=== PATIENT | male | born 1975 | race Two or more races ===

== ENCOUNTER 2024-07-28 17:27 | Emergency (ER) | payer OTHER, SELFPAY ==
[2024-07-28 17:34] VITALS: BP 139/81; PULSE 84; TEMP 38.1; O2SAT 97
--- NOTE | 2024-07-28 17:43 | XR_ITS ---
The [address] [address] Patient Name: SADA ROJAS MRN: [id number] date: 1975 Sex: M Assigned Patient Location: ER Current Patient Location: ED.MAIN Accession/Order Number: [id number] Exam Date: 07/28/2024 18:38 Report Date: 07/28/2024 18:39 At the request of: LC HANKINS Procedure: XR chest 2V Chest 2 views CLINICAL HISTORY: Cough fever congestion for the past week. COMPARISON: None FINDINGS: Heart normal in size. Lungs are clear. No free air. XR/XR chest 2V IMPRESSION: NO ACUTE CARDIOPULMONARY ABNORMALITY. Impression dictated by: Ronnie Sauer Jr., D.ODano07/28/2024 6:39 PM Dictation Location: [facility] Electronically authenticated by: [id number] Y Date: 07/28/2024 18:39
--- NOTE | 2024-07-28 17:44 | ED.URI1 ---
HPI - URI/Sore Throat General Chief Complaint: Upper Respiratory Infection Stated Complaint: FLU Symptoms Time Seen by Provider: 07/28/24 17:29 Source: patient History of Present Illness HPI Narrative: Patient is a 49-year-old male presents to the ER with a work colleague for evaluation of cough and fever. Patient had symptoms started last Monday he is here with a group of individuals from [facility] and they are living together. They arrived on 16 July. Patient states symptoms started mid last week on Monday and where he is living many people have influenza A. His colleagues however are getting better but the patient still has symptoms and does not appear to be improving. There is been no chest pain, vomiting or diarrhea. He has some discomfort with his cough and minimally productive sputum. His colleague is translating for him at the bedside. He arrives mildly febrile states he took paracetamol 3 hours prior to arrival and TheraFlu a few hours ago. MD elicited complaint: Reports fever, cough and nasal congestion Onset (ago): day(s) (5) Consistency: Reports constant Able to tolerate fluids by mouth: Yes Exacerbating factors: Reports nothing Relieving factors: Reports nothing Context: Reports sick contacts, recent travel and other(s) with similar symptoms Associated symptoms: Reports fever, myalgias and cough; Denies stiff neck, nausea or vomiting Treatments prior to arrival: Reports acetaminophen and cold medicine Related Data Previous Rx's ?Medication ?Instructions ?Recorded azithromycin 250 mg tablet 250 mg PO DAILY 4 days #4 tabs 07/28/24 (Zithromax) benzonatate 200 mg capsule 200 mg PO TID PRN cough #15 caps 07/28/24 Allergies Allergy/AdvReac Type Severity Reaction Status Date / Time No Known Drug Allergies Allergy Verified 07/28/24 17:37 Review of Systems ROS Constitutional Reports: fever; Denies: chills Eyes Denies: change in vision Ears, nose, mouth, and throat Denies: throat pain or neck pain Cardiovascular Denies: chest pain, palpitations, edema or swelling of feet/ankles Respiratory Reports: cough; Denies: shortness of breath Gastrointestinal Denies: abdominal pain, nausea, vomiting or coffee grounds in vomit Genitourinary Denies: painful urination Musculoskeletal Denies: back pain, neck pain, extremity pain or extremity swelling Integumentary/Breast Denies: rash, itching or redness Neurological Denies: headache Psychiatric Denies: anxiety, mood swings or panic attacks Exam Narrative Exam Narrative: Nurses notes and vital signs reviewed and patient is not hypoxic. General: The patient appears well and in no apparent distress. Patient is resting comfortably on cart. Skin: Warm, dry, no pallor noted. No evidence of rash Head: Normocephalic, atraumatic Neck: Supple, trachea mid-line, no tenderness, no lymphadenopathy Eye: Pupils are equal, round and reactive to light, EOMI Ears, Nose, Mouth, and Throat: TM are clear, normal light reflex, oral mucosa is moist, no posterior oropharynx erythema or hypertrophy, uvula is mid-line, positive postnasal drainage. Cardiovascular: Regular Rate and Rhythm Respiratory: Patient is in no distress, no accessory muscle use, lungs are clear to auscultation, no wheezing, rales or rhonchi. Diminished in the bases. Harsh cough noted at the bedside. Chest Wall: no tenderness Back: non-tender, no CVA tenderness Musculoskeletal: normal ROM, no tenderness, no swelling GI: Normal bowel sounds, no tenderness to palpation, no masses appreciated. No rebound, guarding, or rigidity noted. Neurological: A&O x4 Psychiatric: Cooperative Constitutional Vital Signs, click to edit/add: Last Vital Signs Temp 100.5 F H 07/28/24 17:34 Pulse 84 07/28/24 17:34 Resp 16 07/28/24 17:34 BP 139/81 07/28/24 17:34 Pulse Ox 97 07/28/24 17:34 O2 Del Method Room Air 07/28/24 17:34 Course Vital Signs Vital signs: Vital Signs Temperature 100.5 F H 07/28/24 17:34 Pulse Rate 84 07/28/24 17:34 Respiratory Rate 16 07/28/24 17:34 Blood Pressure 139/81 07/28/24 17:34 Pulse Oximetry 97 07/28/24 17:34 Oxygen Delivery Method Room Air 07/28/24 17:34 Temperature 100.5 F H 07/28/24 17:34 Pulse Rate 84 07/28/24 17:34 Respiratory Rate 16 07/28/24 17:34 Blood Pressure 139/81 07/28/24 17:34 Pulse Oximetry 97 07/28/24 17:34 Oxygen Delivery Method Room Air 07/28/24 17:34 MDM - URI/Sore Throat MDM Narrative Medical decision making narrative: Patient here from [facility], we discussed his clinical picture consistent with that of likely influenza however his symptoms have not improved like his coworkers he is without any leg edema or swelling he is not hypoxic chest x-ray concerning for a right lower lobe infiltrate on preliminary view we will treat him with azithromycin patient discharge and questions were answered via enrollment representative formal at the bedside he did have a colleague helping him with translation but we wanted to give the opportunity to ask any questions or concerns. He is given handwritten prescriptions to fill at a pharmacy with instructions and we were able to translate some of his discharge instructions to his ramona language for further understanding patient thankful had no further concerns or questions encouraged to follow-up with family doctor or [facility], he may return to the ER if symptoms worsen or new symptoms develop. The patient is to followup with primary care physician in next 2-3 days or to return to the emergency department should any of the signs or symptoms worsen or new symptoms develop. Patient had questions answered. The patient agrees with the following Diagnosis and Treatment plan and the patient will be discharged home. Discharge Plan Discharge Chief Complaint: Upper Respiratory Infection Clinical Impression: Upper respiratory infection, Pneumonia, Exposure to influenza Patient Disposition: Home, Self-Care Time of Disposition Decision: 18:14 Condition: Good Prescriptions / Home Meds: New benzonatate 200 mg capsule 200 mg PO TID PRN (Reason: cough) Qty: 15 0RF azithromycin [Zithromax] 250 mg tablet 250 mg PO DAILY 4 Days Qty: 4 0RF Print Language: Romanian Instructions: Pneumonia (ED) Additional Instructions: Z?pal plic CO POT?EBUJETE V?D?T: Z?pal plic je infekce v plic?ch zp?soben? bakteriemi, desiree, pl?sn?mi nebo paraziti. M??ete se nakazit, pokud p?ijdete do kontaktu s n?k?m, kdo je nemocn?. Z?pal plic m??ete dostat, pokud jste crystal?vno podstoupili operaci nebo jste pot?ebovali ventil?tor Pom??e v?m d?chat. Z?pal plic m??e b?t scarlett? zp?soben n?hodn?m vdechnut?m slin nebo mal? kousky j?dla. Z?pal plic m??e zp?sobit m?rn? p??znaky nebo m??e b?t z?va?n? a ?ivot ohro?uj?c?. POKYNY K VYPOU?T?N?: Vra?te se na pohotovost, pokud: Vyka?l?v?te krev. Va?e srdce bije v?ce ne? 100 ?radha? za 1 minutu. Jste velmi unaven?, zmaten? a nem??ete jasn? myslet. Strana 2 z 6 M?te bolest na hrudi nebo pot??e s d?ch?n?m. Va?e rty nebo nehty ze?ednou nebo zmodraj?. Zavolejte sv?ho l?ka?e, pokud: Va?e p??znaky jsou stejn? nebo se zhor?uj? 48 hodin po za??tku antibiotika. Va?e hore?ka nen? ni??? ne? 99 ?F (37,2 ?C) 48 hodin po zah?andrew? u??v?n? antibiotik. M?te hore?ku vy??? ne? 101 ?F (38.3 ?C). Nem??ete j?st, nebo m?te ztr?tu ?nevolnost nebo zvrac?te. M?te dotazy nebo obavy t?malachi?c? se va?eho stavu nebo p??e. L?ky: Mo?n? budete pot?ebovat n?kter? z n?sleduj?c?ch l?k?: Antibiotika l??? z?pal plic zp?soben? bakteriemi. Paracetamol sni?uje bolest a hore?ku. Je k dispozici bez objedn?n? l?ka?e. Zeptejte se, kolik ho u??vat a mari ?asto ho u??vat. Postupujte podle pokyn?. P?e?t?te si ?t?tky v?ech ostatn?ch l?k?, kter? u??v?te, abyste zjistili, zda scarlett? obsahuj? acetaminofen, nebo se zeptejte sv?ho l?ka?e ?i l?k?rn?ka. Acetaminofen m??e zp?sobit po?kozen? jater, pokud nen? u??v?n spr?vn?. NSAID, jako je ibuprofen, pom?haj? sni?ovat otoky, bolest a hore?ku. Tento l?k je dostupn? s objedn?vkou l?ka?e nebo bez n?j. NSAID mohou u n?kter?ch lid? zp?sobit krv?adeel? do ?aludku nebo probl?my s ledvinami. Pokud u??v?te l?k na ?ed?n? krve, v?dy se zeptejte sv?ho l?ka?e, zda jsou pro v?s NSAID bezpe?n?. V?dy si p?e?t?te ?t?wilfredo l?ku a postupujte podle pokyn?. Strana 3 z 6 U??vejte l?k podle pokyn?. Kontaktujte sv?ho poskytovatele zdravotn? p??e, pokud se domn?v?te, ?e v?? l?k nepom?h?, nebo pokud Referrals: [facility]: [Other] - 1 week Nam Barth MD [Physician] - 1 week Physician,Non-Staff, [Primary Care Provider] - 1 week
[2024-07-28] MEDS: IBUPROFEN 600 MG TABLET PO (18:04)
[2024-07-28] MEDS: AZITHROMYCIN 250 MG TABLET 500 MG PO (18:33)
== END 2024-07-28 18:46 | disposition home or self-care (01) ==
PROVIDERS: Emergency Provider Emergency Medicine
DX: J18.9 Pneumonia, unspecified organism (principal); R50.9 Fever, unspecified; J06.9 Acute upper respiratory infection, unspecified; Z20.828 Contact with and (suspected) exposure to other viral communicable diseases
CPT/HCPCS: 71046; 99283